=== PATIENT | male | born 1935 | race African-American/Black ===

== ENCOUNTER 2023-12-15 04:24 | Emergency (ER) | payer OTHER, MEDICAID ==
[~2023-12-15] VITALS: Ht 180.3 cm; Wt 69.0 kg
[2023-12-15 04:31] VITALS: O2SAT 99
[2023-12-15 06:40] LABS: EOSINOPHILS % 2.4 % (0.0-5.0); HEMATOCRIT. 39.7 % (42.0-52.0); LYMPHOCYTES % 19.7 % (20.0-50.0); MEAN CORPUSCULAR HEMOGLOBIN 31.1 pg (28.0-32.0); MEAN CORPUSCULAR HGB CONC 32.7 g/dL (31.0-37.0); MEAN CORPUSCULAR VOLUME 95.3 fL (80.0-94.0); MEAN PLATELET VOLUME 8.3 fl (7.4-10.4); MONOCYTES % 6.2 % (2.0-8.0); NEUTROPHILS % 70.7 % (40.0-76.0); PLATELET 130 x1000/uL (130-400); RED BLOOD CELL COUNT 4.17 mill/uL (4.7-6.1); RED CELL DISTRIBUTION WIDTH 14.7 % (11.6-14.6); WHITE BLOOD COUNT 3.1 x1000/uL (4.5-11.0)
[2023-12-15 06:46] LABS: CHLORIDE 107 mEq/L (98-107); POTASSIUM 3.8 mEq/L (3.5-5.1); SODIUM 141 mEq/L (136-145)
[2023-12-15 06:47] LABS: CALCIUM 9.5 mg/dL (8.7-10.4); CARBON DIOXIDE 27 mEq/L (21-32)
[2023-12-15 06:50] LABS: PROTHROMBIN TIME 11.4 sec (9.6-11.0)
[2023-12-15 06:52] LABS: CREATININE 0.7 mg/dL (0.6-1.3); GLUCOSE 94 mg/dL (70-105); TROPONIN I HIGH SENSITIVITY 6 ng/L (3.0-53); UREA NITROGEN BLOOD 11 mg/dL (9-23)
[2023-12-15 06:53] LABS: ALANINE AMINOTRANSFERASE 21 IU/L (10-49); ALBUMIN 4.3 g/dL (3.2-4.8); ASPARTATE AMINOTRANSFERASE 28 IU/L (<34)
[2023-12-15 06:54] LABS: BILIRUBIN TOTAL 0.8 mg/dL (0.1-1.0); PROTEIN TOTAL 7.5 g/dL (6.0-8.3)
[2023-12-15 07:05] LABS: ETHANOL BLOOD < 10 mg/dL (<10)
[2023-12-15] MEDS: SODIUM CHLORIDE 0.9% 500 ML IV ONE (09:00)
[2023-12-15 09:48] VITALS: BP 159/96; PULSE 55; RESP 19; TEMP 97.8
== END 2023-12-15 10:21 | disposition short-term general hospital (02) ==
LOC: EDSEX 04:24 → ER 04:24 → EDBEDREQ 08:18 → EDBEDREQTM 08:18 → ER 10:21 → CANBEDREQ 12-17 16:30
DX: R55 Syncope and collapse (principal); R53.1 Weakness; I10 Essential (primary) hypertension
CPT/HCPCS: 80053; 80320; 85025; 85610; 84484; 36415; 71045; 70450; 93005; 96360; 99285; J7040; G0480